=== PATIENT | female | born 1970 | race Two or more races ===

== ENCOUNTER 2017-02-05 13:29 | Emergency (ER) | payer BC ==
[2017-02-05 13:35] VITALS: PULSE 76; RESP 16; TEMP 98.4
--- NOTE | 2017-02-05 14:32 | EDPHY ---
H & P Stated Complaint: L Foot Injury - Personal History LMP (Females 10-55): Post Menopausal Current Tetanus Diphtheria and Acellular Pertussis (TDAP): Yes - Medical/Surgical History Hx Asthma: No Hx Chronic Respiratory Disease: No Hx Diabetes: No Hx Cardiac Disease: No Hx Renal Disease: No Hx Cirrhosis: No Hx Alcoholism: No Hx HIV/AIDS: No Hx Splenectomy or Spleen Trauma: No Other PMH: c section x 2, hyperlipidemia - Social History Smoking Status: Never smoked Time Seen by Provider: 02/05/17 14:04 HPI/ROS: Chief complaint: Left foot injury History of present illness: This is a 46-year-old female who presents to the emergency department for left foot injury. Patient reports last night she rolled her ankle. Since then she has had pain and swelling mostly to the outer aspect of the ankle. It makes it difficult to ambulate. No report of abnormal coolness or paresthesias in the foot. No report of trauma to other parts of the body. (Moises Granados) - Physical Exam Exam: General appearance: Alert, nontoxic Musculoskeletal: There is edema to the lateral malleolar region of the ankle. This region is tender to palpation without crepitus or bony deformity. The rest of the ankle is nontender including no tenderness or defect over the Achilles tendon. The foot is nontender, patient is moving digits of the foot well. The lower leg and knee are town tender and she is moving the knee well. Neurologic exam: The patient has normal sensation and motor function distal to the injury. Vascular exam: Normal pulses and capillary refill in the foot (Moises Granados) Constitutional: Initial Vital Signs Temperature (C) 36.9 C 02/05/17 13:33 Heart Rate 76 02/05/17 13:33 Respiratory Rate 16 02/05/17 13:33 Blood Pressure 98/71 L 02/05/17 13:33 O2 Sat (%) 93 02/05/17 13:33 O2 Delivery Mode Room Air Allergies/Adverse Reactions: No Known Allergies Allergy (Unverified 10/15/15 02:32) Home Medications: Medication Instructions Recorded Hydrocodone/APAP 5/325 [[place] 1 - 2 tab PO Q4H PRN #20 tab 10/15/15 5/325 (RX)] Medical Decision Making - Diagnostics Imaging: I viewed and interpreted images myself ED Course/Re-evaluation: Patient seen under the supervision of my secondary supervising physician Dr. Lori Gamez. Patient presents to the emergency department for a left ankle injury. The foot is neurovascularly intact. X-ray negative for fracture. Likely sprain/strain. An Pete wrap and Velcro stirrup splint is applied. Patient is given crutches. Home care is discussed. She is asked to follow up with a primary care doctor or orthopedic doctor for recheck. Return precautions are given. The flatwork supervisor is used to facilitate communication with patient. (Moises Granados) Differential Diagnosis: Included but not limited to contusion, sprain or strain, bony fracture (Moises Granados) Other Provider: The patient was evaluated and managed by the Physician Scroll Shear Operator/ Nurse Practitioner. My co-signature indicates that I have reviewed this chart and I agree with the findings and plan of care as documented. I am the secondary supervising physician. (Lori Gamez) Departure - Departure Disposition: Home, Routine, Self-Care Clinical Impression: Ankle sprain Condition: Good Instructions: Ankle Sprain (ED) Additional Instructions: Follow-up with a primary care doctor or orthopedic doctor for continued evaluation and care Use ibuprofen 600 mg 3 times a day for the next 2-3 days for pain Ice the injury, 20 minutes on, 3 times daily for the next 3 days If symptoms worsen or new symptoms develop return to the emergency room for recheck Rell sheila kajal de seguimiento con un doctor de cabecera o especialista ortop dico para ser evaluada y cuidada continuamente Use ibuprofeno 600 mg 9 veces a el da por los prximos 2-3 cano para el dolor Use hielo hacia la herida, 20 minutes seguidos, 3 veces al da por los prximos 3 cano Si sntomas empeoran o si nuevos sntomas desarrollan regrese a la paxton de emergencias para ser revisada de nuevo Referrals: NONE *PRIMARY CARE P,. [Primary Care Provider] - As per Instructions [facility],. [Clinic] - As per Instructions Jus Guidry MD [Medical Doctor] - As per Instructions Print Language: Palauan
[2017-02-05 14:51] VITALS: BP 104/72; O2SAT 94
== END 2017-02-05 14:50 | disposition home or self-care (01) ==
DX: S93.402A Sprain of unspecified ligament of left ankle, initial encounter (principal); X58.XXXA Exposure to other specified factors, initial encounter